=== PATIENT | male | born 1990 | race Caucasian/White ===

== ENCOUNTER 2021-12-24 20:09 | Emergency (ER) | payer SELFPAY ==
[2021-12-24 21:26] LABS: HEMOGLOBIN 14.8 gm/dl (14.0-17.5); RED BLOOD COUNT 4.8 M/UL (4.20-5.50); WHITE BLOOD COUNT 7.4 K/UL (4.5-11.0)
[2021-12-24 21:38] LABS: BUN/CREATININE RATIO 11 (0-10)
[2021-12-24] MEDS ORDERED: BENZONATATE200 MG PO (21:41)
[2021-12-24] MEDS ORDERED: ZITHROMAX250 MG PO (21:41)
[2021-12-24] MEDS ORDERED: MEDROL4 MG PO (21:41)
== END 2021-12-24 23:37 | disposition home or self-care (01) ==
LOC: ER1 20:09
PROVIDERS: Preventive Medicine Occupational Medicine
DX: U07.1 COVID-19 (principal)
CPT/HCPCS: 0240U; 71045; 80048; 85025; 94664; 96374; 99285; J2930; J7030